=== PATIENT | female | born 1980 | race Caucasian/White ===

== ENCOUNTER 2019-12-27 10:21 | Emergency (ER) | payer BC ==
[~2019-12-27] VITALS: Ht 180.3 cm; Wt 69.0 kg
[~2019-12-27 10:21] MED LIST: APAP500; HYDROCODON-ACE1 EACH; IBUPROFEN 600600 M1 PO; MACROBID 100 M100 M1 PO; MEDROXYPROGESTERONE; NAPROSYN500 MG PO; PERCOCET 5-3251 EACH PO; PHENERGAN 25 MG25 M1 PO; TRAMADOL 50 MG50 MG PO; ULTRAM 50MG TAB50 MG PO
[2019-12-27 10:51] LABS: URINE BILIRUBIN NEGATIVE (Negative); URINE BLOOD 3+ (Negative); URINE CLARITY CLOUDY; URINE COLOR YELLOW; URINE GLUCOSE-RANDOM* NEGATIVE (Negative); URINE KETONES NEGATIVE (Negative); URINE LEUKOCYTES-REFLEX TRACE (Negative); URINE NITRITE-REFLEX NEGATIVE (Negative); URINE PROTEIN (DIPSTICK) TRACE (Negative); URINE SPECIFIC GRAVITY >= 1.030 (1.005-1.035); URINE UROBILINOGEN 0.2 E.U./dl (0.2-1.0)
[2019-12-27 11:22] LABS: BACTERIA-REFLEX 1-9 Few /HPF (None Seen); CASTS None Seen /LPF (None Seen); CRYSTALS None Seen /LPF (None Seen); SQUAMOUS >10 Many /LPF (0-3); URINE RBC 3-10 Few /HPF (0-2); URINE WBC-REFLEX 6-15 Few /HPF (0-5)
[2019-12-27 12:39] LABS: ABSOLUTE NEUTROPHILS 6.9 thou/uL (1.4-8.2); BASOPHILS 0.4 % (0.0-2.0); EOSINOPHILS 1.1 % (0.0-3.0); HEMATOCRIT 43.5 % (37.0-47.0); HEMOGLOBIN 14.6 gm/dL (12.0-15.0); LYMPHOCYTES 19.8 % (24.0-44.0); MCH 31.4 pg (26.0-34.0); MCHC 33.6 g/dL (28.0-37.0); MCV 93.5 fL (80.0-100.0); MONOCYTES 4.9 % (1.0-8.0); PLATELET COUNT 244 thou/uL (150-400); POLYS 73.8 % (36.0-66.0); RBC 4.66 mil/uL (4.20-5.00); WBC 9.3 thou/uL (4.0-11.0)
[2019-12-27 13:01] LABS: ALBUMIN 4.3 g/dL (3.4-5.0); CALCIUM 8.8 mg/dL (8.5-10.1); CREATININE 0.9 mg/dL (0.6-1.0); TOTAL BILIRUBIN 0.3 mg/dL (<0.1-1.0); TOTAL PROTEIN 8.3 g/dL (6.4-8.2)
[2019-12-27] MEDS ORDERED: NORCO 10-325 T1 EACH PO (14:58)
[2019-12-27] MEDS ORDERED: ONDANSETRON HCL4 M2 PO (14:58)
[2019-12-27] MEDS ORDERED: KEFLEX500 M1 PO (14:58)
[2019-12-27 15:26] VITALS: BP 107/67
== END 2019-12-27 15:30 | disposition home or self-care (01) ==
LOC: ER 10:21
PROVIDERS: Physician Assistant
DX: N20.1 Calculus of ureter (principal); N39.0 Urinary tract infection, site not specified; R11.10 Vomiting, unspecified; Z90.49 Acquired absence of other specified parts of digestive tract; Z87.442 Personal history of urinary calculi; Z88.6 Allergy status to analgesic agent; Z88.7 Allergy status to serum and vaccine

== ENCOUNTER 2019-12-29 15:13 | Emergency (ER) | payer BC ==
[~2019-12-29] VITALS: Ht 180.3 cm; Wt 69.0 kg
[~2019-12-29 15:13] MED LIST changes: +KEFLEX500 M1 PO; +NORCO 10-325 T1 EACH PO; +ONDANSETRON HCL4 M2 PO
[2019-12-29 15:56] LABS: URINE BILIRUBIN NEGATIVE (Negative); URINE BLOOD 3+ (Negative); URINE CLARITY SL CLOUDY; URINE COLOR YELLOW; URINE GLUCOSE-RANDOM* NEGATIVE (Negative); URINE KETONES NEGATIVE (Negative); URINE LEUKOCYTES-REFLEX TRACE (Negative); URINE NITRITE-REFLEX NEGATIVE (Negative); URINE PROTEIN (DIPSTICK) 1+ (Negative); URINE SPECIFIC GRAVITY >= 1.030 (1.005-1.035); URINE UROBILINOGEN 0.2 E.U./dl (0.2-1.0)
[2019-12-29 16:04] LABS: CASTS None Seen /LPF (None Seen); CRYSTALS None Seen /LPF (None Seen); SQUAMOUS 4-10 Moderate /LPF (0-3)
[2019-12-29 16:05] LABS: BACTERIA-REFLEX 1-9 Few /HPF (None Seen); URINE RBC >20 Many /HPF (0-2); URINE WBC-REFLEX 6-15 Few /HPF (0-5)
[2019-12-29 17:38] LABS: ABSOLUTE NEUTROPHILS 6.1 thou/uL (1.4-8.2); BASOPHILS 0.7 % (0.0-2.0); EOSINOPHILS 0.7 % (0.0-3.0); HEMATOCRIT 41.4 % (37.0-47.0); HEMOGLOBIN 13.9 gm/dL (12.0-15.0); LYMPHOCYTES 28.6 % (24.0-44.0); MCH 31.3 pg (26.0-34.0); MCHC 33.5 g/dL (28.0-37.0); MCV 93.4 fL (80.0-100.0); MONOCYTES 3.8 % (1.0-8.0); PLATELET COUNT 275 thou/uL (150-400); POLYS 66.2 % (36.0-66.0); RBC 4.43 mil/uL (4.20-5.00); WBC 9.2 thou/uL (4.0-11.0)
[2019-12-29 17:44] LABS: CALCIUM 9.1 mg/dL (8.5-10.1); CREATININE 0.8 mg/dL (0.6-1.0); POTASSIUM 3.8 mmol/L (3.5-5.1)
[2019-12-29 17:50] LABS: ALBUMIN 4.1 g/dL (3.4-5.0); TOTAL BILIRUBIN 0.3 mg/dL (<0.1-1.0); TOTAL PROTEIN 7.9 g/dL (6.4-8.2)
[2019-12-29 21:44] VITALS: BP 127/80
== END 2019-12-29 21:46 | disposition short-term general hospital (02) ==
LOC: ER 15:13
PROVIDERS: Physician Assistant
DX: N20.0 Calculus of kidney (principal); R10.32 Left lower quadrant pain; R11.10 Vomiting, unspecified; Z87.442 Personal history of urinary calculi; Z90.89 Acquired absence of other organs; Z98.890 Other specified postprocedural states; Z79.2 Long term (current) use of antibiotics; Z79.899 Other long term (current) drug therapy; Z88.7 Allergy status to serum and vaccine; Z88.6 Allergy status to analgesic agent